=== PATIENT | female | born 1985 | race Caucasian/White ===

== ENCOUNTER 2017-05-18 10:52 | Inpatient (IN) ==
[2017-05-18] MEDS: LACTATED RINGERS 1,000 ML IV SCH (11:30)
[2017-05-18] MEDS ORDERED: ONDANSETRON 4 MG/2 ML VIAL IV PRN (11:30)
[2017-05-18] MEDS ORDERED: BUTORPHANOL 2 MG/ML VIAL IV PRN (11:30)
[2017-05-18] MEDS ORDERED: MEPERIDINE 50 MG/1 ML VIAL IV PRN (11:30)
[2017-05-18] MEDS ORDERED: OXYTOCIN/LR 20 UNIT/1,000 ML BAG IV SCH (11:30)
[2017-05-18 12:02] LABS: Basophils % 0.3 % (0.0-0.8); Eosinophils % 0.2 % (0.00-10.9); Hematocrit 33.4 VOL% (35.7-47.0); Hemoglobin 11.4 GM/DL (12.0-16.0); Immature Granulocytes % 0.7 %; Immature Granulocytes Absolute 0.08 #; Lymphocytes # 2.2 10*3/uL (1.4-4.0); Lymphocytes % 18.6 % (21.3-54.2); Mean Corpuscular HGB Conc 34.1 GM/DL (32-36); Mean Corpuscular Hemoglobin 31 PG (27-34); Mean Corpuscular Volume 90.3 FL (87-102); Mean Platelet Volume 11.2 FL (9.6-12.0); Monocytes # 0.8 10*3/uL (0.11-0.8); Monocytes % 6.3 % (1.7-12.7); Neutrophils # 8.8 10*3/uL (1.4-7.4); Neutrophils % 73.9 % (38.7-73.9); Platelet Count 236 T/CUMM (130-400); Red Cell Distribution Width 13.1 % (9.3-17.3); White Blood Count 11.9 T/CUMM (4-12)
[2017-05-18 12:39] LABS: Albumin 2.6 G/DL (3.4-5.0); Bilirubin,Total 0.5 MG/DL (0.2-1.0); Calcium 8.4 MG/DL (8.5-10.1); Osmolality,Calculated 272.7 MOS/KG (273-304); Potassium 3.7 MMOL/L (3.5-5.1); Total Protein 7.1 G/DL (6.4-8.3)
[2017-05-18] MEDS ORDERED: CITRIC ACID/SODIUM CITRATE 30 ML UDCUP PO ONE (18:27)
[2017-05-18] MEDS ORDERED: LACTATED RINGERS 1,000 ML IV ONE (18:27)
[2017-05-18] MEDS ORDERED: PROMETHAZINE 25 MG/1 ML VIAL IM ONE (18:27)
[2017-05-18] MEDS ORDERED: FAMOTIDINE 20 MG/2 ML VIAL IV ONE (18:27)
[2017-05-18] MEDS ORDERED: ePHEDrine 50 MG/ML AMP IV PRN (18:27)
[2017-05-18] MEDS ORDERED: diphenhydrAMINE 50 MG/1 ML VIAL IV PRN ×2 (18:27)
[2017-05-18] MEDS ORDERED: fentaNYL 2 MCG/ROPIV 0.2% EPID 150 ML EPIDURAL SCH (18:27)
[2017-05-18] MEDS ORDERED: ONDANSETRON 4 MG/2 ML VIAL IV ONE (18:27)
[2017-05-18] MEDS ORDERED: hydrOXYzine HCL 25 MG/1 ML VIAL IM PRN (18:27)
[2017-05-18 21:39] LABS: Apearance,Urine CLEAR (Clear); Bilirubin,Urine Negative (Negative); Blood, Urine Negative (Negative); Glucose,Urine (UA) Negative (Negative); Hyaline Casts,Urine 1 /LPF (0-3); Ketones,Urine 20 mg/dL (Negative); Mucus,Urine Occasional /LPF (Occasional); Nitrite,Urine Negative (Negative); Protein,Urine Negative; RBC,Urine <1 /HPF (0-4); Squamous Epithelial Cell,Urine Occasional /HPF (0-10); Urine Color Yellow (Yellow); Urine Specific Gravity 1.009 (1.001-1.035); Urine Urobilinogen < 2.0 EU/DL (0.2-1.0); WBC,Urine 1 /HPF (0-6)
[2017-05-19] MEDS: LACTATED RINGERS 1,000 ML IV SCH ×2 (00:14→03:00)
[2017-05-19] MEDS ORDERED: LIDOCAINE 1% 50 ML VIAL ONE (03:21)
[2017-05-19] MEDS ORDERED: CARBOPROST TROMETHAMINE 250 MCG/ML AMP IM ONE (03:22)
[2017-05-19] MEDS ORDERED: METHYLERGONOVINE 0.2 MG/1 ML AMP ONE (03:22)
[2017-05-19] MEDS ORDERED: miSOPROStol 200 MCG TABLET ONE (03:22)
[2017-05-19] MEDS ORDERED: RHO(D) IMMUNE GLOBULIN 300 MCG SYRINGE IM ONE (06:52)
[2017-05-19] MEDS ORDERED: BENZOCAINE 20%/MENTHOL 0.5% SPRAY 56 GM CAN TOP PRN (06:52)
[2017-05-19] MEDS ORDERED: OXYTOCIN/LR 20 UNIT/1,000 ML BAG IV ONE (06:52)
[2017-05-19] MEDS ORDERED: ACETAMINOPHEN 325 MG TABLET PO PRN (06:52)
[2017-05-19] MEDS ORDERED: ONDANSETRON 4 MG/2 ML VIAL IV PRN (06:52)
[2017-05-19] MEDS ORDERED: DIPH/TET/ACEL PERT BOOSTER VACCINE 0.5 ML VIAL IM ONE (06:52)
[2017-05-19] MEDS ORDERED: HYDROCORTISONE 2.5% RECTAL CREAM 30 GM TUBE TOP PRN (06:52)
[2017-05-19] MEDS ORDERED: MEASLES/MUMPS/RUBELLA VACCINE 0.5 ML VIAL SUBCUT ONE (06:52)
[2017-05-19] MEDS ORDERED: oxyCODONE/ACETAMINOPHEN 5-325 MG TABLET PO PRN (06:52)
[2017-05-19] MEDS ORDERED: WITCH HAZEL PADS 100/JAR TOP PRN (06:52)
[2017-05-19] MEDS ORDERED: BISACODYL 10 MG SUPP RECTAL PRN (06:52)
[2017-05-19] MEDS ORDERED: LANOLIN 50% CREAM 0.3 OZ TUBE TOP PRN (06:52)
[2017-05-19] MEDS: IBUPROFEN 800 MG TABLET PO PRN ×2 (09:40→18:42)
[2017-05-19] MEDS: DOCUSATE SODIUM 100 MG CAPSULE PO SCH ×2 (09:40→21:23)
[2017-05-19] MEDS: oxyCODONE/ACETAMINOPHEN 5-325 MG TABLET PO PRN (09:43)
[2017-05-20 06:42] LABS: Basophils # 0.1 10*3/uL (0.0-0.2); Basophils % 0.3 % (0.0-0.8); Eosinophils # 0.1 10*3/uL (0.0-0.87); Eosinophils % 0.5 % (0.00-10.9); Hematocrit 25.8 VOL% (35.7-47.0); Hemoglobin 8.6 GM/DL (12.0-16.0); Immature Granulocytes % 0.6 %; Immature Granulocytes Absolute 0.11 #; Lymphocytes # 4.1 10*3/uL (1.4-4.0); Lymphocytes % 22.7 % (21.3-54.2); Mean Corpuscular HGB Conc 33.3 GM/DL (32-36); Mean Corpuscular Hemoglobin 30 PG (27-34); Mean Corpuscular Volume 90.8 FL (87-102); Monocytes # 1.2 10*3/uL (0.11-0.8); Monocytes % 6.7 % (1.7-12.7); Neutrophils # 12.4 10*3/uL (1.4-7.4); Neutrophils % 69.2 % (38.7-73.9); Platelet Count 195 T/CUMM (130-400); Red Blood Count 2.84 MC/CUMM (3.8-5.5); Red Cell Distribution Width 13.2 % (9.3-17.3)
[2017-05-20] MEDS: DOCUSATE SODIUM 100 MG CAPSULE PO SCH ×2 (10:01→21:44)
[2017-05-20] MEDS: oxyCODONE/ACETAMINOPHEN 5-325 MG TABLET PO PRN (11:12)
[2017-05-21 08:46] VITALS: BP 126/91
[2017-05-21] MEDS: DOCUSATE SODIUM 100 MG CAPSULE PO SCH (09:27)
== END 2017-05-21 15:20 | disposition home or self-care (01) | DRG 775 ==
LOC: N.LDOUT 10:52 → N.LD 11:00 → N.OB 05-19 08:34
PROVIDERS: ADMIT Obstetrics & Gynecology; ATTEND Obstetrics & Gynecology

== ENCOUNTER 2020-12-23 07:48 | Observation (INO) ==
[2020-12-19 12:42] LABS: Amorphous Crystals,Urine Occasional /HPF (Few); Bilirubin,Urine Negative (Negative); Blood, Urine Moderate mg/dL (Negative); Glucose,Urine (UA) Negative (Negative); Ketones,Urine Negative (Negative); Mucus,Urine Occasional /LPF (Occasional); Nitrite,Urine Negative (Negative); Protein,Urine Negative; RBC,Urine 1 /HPF (0-4); Urine Appearance CLOUDY (Clear); Urine Color Yellow (Yellow); Urine Specific Gravity 1.017 (1.001-1.035); Urine Urobilinogen < 2.0 EU/DL (0.2-1.0)
[2020-12-19 12:47] LABS: Basophils # 0.1 10*3/uL (0.0-0.2); Basophils % 0.6 % (0.0-0.8); Eosinophils # 0.1 10*3/uL (0.0-0.87); Eosinophils % 0.7 % (0.00-10.9); Hematocrit 39.8 VOL% (35.7-47.0); Hemoglobin 12.8 GM/DL (12.0-16.0); Immature Granulocytes % 0.3 %; Immature Granulocytes Absolute 0.03 #; Lymphocytes # 2.2 10*3/uL (1.4-4.0); Lymphocytes % 24.1 % (21.3-54.2); Mean Corpuscular HGB Conc 32.2 GM/DL (32-36); Mean Corpuscular Volume 90.9 FL (87-102); Mean Platelet Volume 10.8 FL (9.6-12.0); Neutrophils % 66.3 % (38.7-73.9); Platelet Count 327 T/CUMM (130-400); Red Blood Count 4.38 MC/CUMM (3.8-5.5); Red Cell Distribution Width 13.3 % (9.3-17.3)
[~2020-12-23 07:48] MED LIST: CLINDAMYCIN INJ 900 MG/50 ML PREMIX IV ONE; LEVOFLOXACIN INJ 750 MG/150 ML PREMIX IV ONE
[2020-12-23] MEDS: LACTATED RINGERS 1,000 ML IV SCH ×2 (08:50→11:46)
[2020-12-23] MEDS ORDERED: SCOPOLAMINE 1.5 MG PATCH TRANSDERM STA (09:35)
[2020-12-23] MEDS ORDERED: DIAZEPAM 5 MG TABLET PO STA (09:35)
[2020-12-23] MEDS ORDERED: ACETAMINOPHEN 500 MG TABLET PO STA (09:35)
[2020-12-23] MEDS ORDERED: FAMOTIDINE 20 MG TABLET PO STA (09:35)
[2020-12-23] MEDS ORDERED: ESTRADIOL 0.01% VAG CREAM 42.5 GM TUBE VAG ONE (10:08)
[2020-12-23] MEDS ORDERED: fentaNYL 250 MCG/5 ML VIAL ONE (11:07)
[2020-12-23] MEDS ORDERED: MIDAZOLAM 2 MG/2 ML VIAL ONE (11:07)
[2020-12-23] MEDS ORDERED: SEVOFLURANE 1 UNIT/15 MINUTE INH ONE ×3 (11:54→13:01)
[2020-12-23] MEDS ORDERED: DEXAMETHASONE 4 MG/1 ML VIAL ONE (11:54)
[2020-12-23] MEDS ORDERED: ONDANSETRON 4 MG/2 ML VIAL ONE (11:54)
[2020-12-23] MEDS ORDERED: KETOROLAC 30 MG/1 ML VIAL ONE ×2 (11:54→12:51)
[2020-12-23] MEDS ORDERED: ROCURONIUM 50 MG/5 ML VIAL IV ONE (11:54)
[2020-12-23] MEDS ORDERED: propofoL 200 MG/20 ML VIAL IV ONE (11:54)
[2020-12-23] MEDS ORDERED: LIDOCAINE 2% 5 ML VIAL ONE (11:54)
[2020-12-23] MEDS ORDERED: LACTATED RINGERS 1,000 ML IV ONE (11:54)
[2020-12-23] MEDS ORDERED: PROMETHAZINE 25 MG/1 ML VIAL ONE (12:51)
[2020-12-23] MEDS ORDERED: SUGAMMADEX 200 MG/2 ML VIAL IV ONE (12:51)
[2020-12-23] MEDS ORDERED: HYDROmorphone 2 MG/1 ML VIAL ONE (12:52)
[2020-12-23] MEDS ORDERED: FUROSEMIDE 20 MG/2 ML VIAL ONE (12:59)
[2020-12-23] MEDS ORDERED: PHENYLEPHRINE 1 MG/10 ML SYRINGE IV ONE (12:59)
[2020-12-23 13:43] LABS: Bilirubin,Urine Negative (Negative); Blood, Urine Small mg/dL (Negative); Glucose,Urine (UA) Negative (Negative); Ketones,Urine Negative (Negative); Mucus,Urine Occasional /LPF (Occasional); Nitrite,Urine Negative (Negative); Protein,Urine Negative; RBC,Urine 3 /HPF (0-4); Squamous Epithelial Cell,Urine Occasional /HPF (0-10); Urine Appearance CLEAR (Clear); Urine Color Straw (Yellow); Urine Specific Gravity 1.011 (1.001-1.035); Urine Urobilinogen < 2.0 EU/DL (0.2-1.0)
[2020-12-23] MEDS ORDERED: MAGNESIUM HYDROXIDE SUSP 30 ML UDCUP PO PRN (15:29)
[2020-12-23] MEDS ORDERED: DOCUSATE SODIUM 100 MG CAPSULE PO PRN (15:29)
[2020-12-23] MEDS ORDERED: ONDANSETRON 4 MG/2 ML VIAL IV PRN (15:29)
[2020-12-23] MEDS ORDERED: BISACODYL 10 MG SUPP RECTAL PRN (15:29)
[2020-12-23] MEDS ORDERED: ACETAMINOPHEN 325 MG TABLET PO PRN (15:29)
[2020-12-23] MEDS ORDERED: IBUPROFEN 800 MG TABLET PO PRN (15:29)
[2020-12-23] MEDS ORDERED: BENZOCAINE/MENTHOL LOZENGE 18/BOX PO PRN (15:29)
[2020-12-23] MEDS ORDERED: LACTATED RINGERS 1,000 ML IV SCH (15:30)
[2020-12-23] MEDS ORDERED: oxyCODONE/ACETAMINOPHEN 5-325 MG TABLET PO PRN (15:31)
[2020-12-23] MEDS: ONDANSETRON 4 MG/2 ML VIAL IV PRN ×2 (16:35→23:25)
[2020-12-23] MEDS: CLINDAMYCIN INJ 900 MG/50 ML PREMIX IV SCH (19:11)
[2020-12-24] MEDS: CLINDAMYCIN INJ 900 MG/50 ML PREMIX IV SCH (03:23)
[2020-12-24 05:58] LABS: Basophils % 0.1 % (0.0-0.8); Hematocrit 35.3 VOL% (35.7-47.0); Hemoglobin 11.4 GM/DL (12.0-16.0); Immature Granulocytes % 0.4 %; Immature Granulocytes Absolute 0.06 #; Lymphocytes # 1.4 10*3/uL (1.4-4.0); Mean Corpuscular HGB Conc 32.3 GM/DL (32-36); Mean Corpuscular Volume 90.5 FL (87-102); Mean Platelet Volume 10.6 FL (9.6-12.0); Monocytes % 8.4 % (1.7-12.7); Neutrophils % 82.1 % (38.7-73.9); Platelet Count 305 T/CUMM (130-400); Red Cell Distribution Width 13.3 % (9.3-17.3); White Blood Count 15.3 T/CUMM (4-12)
[2020-12-24 08:59] VITALS: BP 128/72
== END 2020-12-24 12:50 | disposition home or self-care (01) ==
LOC: N.OR 07:48 → N.OB 07:48 → N.SDSINP 07:52 → N.OB 14:01
PROVIDERS: ADMIT Obstetrics & Gynecology; ATTEND Obstetrics & Gynecology